=== PATIENT | male | born 1965 | race Caucasian/White ===

== ENCOUNTER 2017-09-07 16:14 | Observation (INO) | payer OTHER ==
[~2017-09-07] VITALS: Ht 172.7 cm; Wt 62.2 kg
[~2017-09-07 16:14] MED LIST: ANAPROX DS550 M1 PO; BACTRIM,SEPT1 TABLET PO; BUPROPION HCL75 MG PO; CARBAMAZEPINE200 MG PO; DESYREL 150 MG150 MG PO; DOCUSATE SODIU100 MG PO; FLOMAX0.4 MG PO; GEODON60 MG PO; METHADONE 22 MG/1 ML PO; METHADONE10 MG PO; MIRALAX255 GM PO; MOTRIN800 MG PO; NAPROSYN250 MG PO; NAPROSYN500 MG PO; NEURONTIN300 MG PO; NEURONTIN600 MG PO; NOHOMEMEDS; PERCOCET; PREDNISONE20 MG PO; PROMETHAZINE HC25 M1 PO; SEROQUEL100 MG PO; SIMVASTATIN20 MG PO; SIMVASTATIN40 M1 PO; SUBOXONE 12 MG1 EACH SL; TORADOL10 MG PO; VENTOLIN HFA18 GM IH; ZITHROMAX Z-PA250 MG PO; ZOFRAN ODT4 MG PO; ZOLOFT100 MG PO
[2017-09-07 16:48] LABS: HEMATOCRIT 35.6 % (38.0-50.0); HEMOGLOBIN 12.4 G/DL (12.5-16.6); MCH 33.5 PG (29.0-34.0); MCHC 34.8 G/DL (30.0-36.0); MCV 96.2 FL (86-99); PLATELET COUNT 174 K/uL (156-360); RBC DIS.WIDTH-SD 46.1 % (39-53); WHITE BLOOD COUNT 7.5 K/uL (4.1-10.2)
[2017-09-07 16:56] LABS: ALBUMIN 3.8 g/dL (3.2-4.8)
[2017-09-07 16:57] LABS: CHLORIDE 102 mEq/L (99-109); POTASSIUM 4.5 mEq/L (3.7-5.4); SODIUM 137 mEq/L (136-147)
[2017-09-07 16:59] LABS: GLUCOSE 84 mg/dL (70-99); TOTAL PROTEIN 6.9 g/dL (6.4-8.3)
[2017-09-07 17:01] LABS: TOTAL BILIRUBIN 0.3 mg/dL (0.0-1.0)
[2017-09-07 17:02] LABS: ALKALINE PHOSPHATASE 78 IU/L (3-129)
[2017-09-07 17:03] LABS: CREATININE 1.1 mg/dL (0.6-1.3); GFR ESTIMATE (CALCULATED) > 59 mL/min/ (58.99-99999)
[2017-09-07 17:04] LABS: AST (GOT) 24 IU/L (2-34); UREA NITROGEN (BUN) 10 mg/dL (9-23)
[2017-09-07 17:05] LABS: ALT (GPT) 15 IU/L (3-49)
[2017-09-07 17:08] LABS: TROP-I INTERPRETATION NEGATIVE; TROPONIN-I < 0.01 ng/mL (0.0-0.30)
[2017-09-07] MEDS ORDERED: WELLBUTRIN XL300 MG PO (18:02)
[2017-09-07] MEDS ORDERED: VENTOLIN HFA18 GM IH (18:03)
[2017-09-07] MEDS ORDERED: ZOCOR20 MG PO (18:03)
[2017-09-07] MEDS ORDERED: NEURONTIN600 MG PO (18:03)
[2017-09-07] MEDS ORDERED: ATROVENT H200 INHALA IH (18:03)
[2017-09-07 20:05] LABS: D-DIMER ELISA < 150.00 ng/mLDDU (<230)
[2017-09-07 20:43] VITALS: BP 120/75
[2017-09-07 22:17] LABS: INTER. NORMALIZED RATIO 1.1
[2017-09-07 22:19] LABS: PTT 33.3 SEC (25-37)
[2017-09-07 23:20] VITALS: BP 99/55
[2017-09-07 23:39] LABS: TROP-I INTERPRETATION NEGATIVE; TROPONIN-I < 0.01 ng/mL (0.0-0.30)
[2017-09-08 04:00] VITALS: BP 104/70
[2017-09-08 05:55] LABS: HEMATOCRIT 34.7 % (38.0-50.0); HEMOGLOBIN 11.5 G/DL (12.5-16.6); MCH 32.3 PG (29.0-34.0); MCHC 33.1 G/DL (30.0-36.0); MCV 97.5 FL (86-99); PLATELET COUNT 140 K/uL (156-360); RBC DIS.WIDTH-CV 13.2 % (11.8-14.6); RBC DIS.WIDTH-SD 47.7 % (39-53); RED BLOOD COUNT 3.56 M/uL (4.00-5.50); WHITE BLOOD COUNT 5.1 K/uL (4.1-10.2)
[2017-09-08 06:11] LABS: TROP-I INTERPRETATION NEGATIVE; TROPONIN-I < 0.01 ng/mL (0.0-0.30)
[2017-09-08 07:13] LABS: ALBUMIN 3.2 G/DL (3.2-4.8); ALKALINE PHOSPHATASE 58 IU/L (3-129); ALT (GPT) 10 IU/L (3-49); AST (GOT) 16 IU/L (2-34); CHLORIDE 109 MEQ/L (99-109); CREATININE 1.2 MG/DL (0.6-1.3); GFR ESTIMATE (CALCULATED) > 59 mL/min/ (58.99-99999); GLUCOSE 79 mg/dL (70-99); POTASSIUM 4.9 MEQ/L (3.7-5.4); SODIUM 141 MEQ/L (136-147); TOTAL BILIRUBIN 0.3 MG/DL (0.0-1.0); TOTAL PROTEIN 5.7 G/DL (6.4-8.3); UREA NITROGEN (BUN) 10 mg/dL (9-23)
[2017-09-08 07:30] VITALS: BP 102/60
[2017-09-08] MEDS ORDERED: ASPIR-LOW81 MG PO (11:48)
== END 2017-09-08 14:19 | disposition home or self-care (01) ==
LOC: EME 16:14 → EDOF 18:49 → ENRESERV 18:52 → 5WEST 20:16 → ENPENDDIS 09-08 14:06 → 5WEST 09-08 14:19
PROVIDERS: Emergency Medicine; Internal Medicine
DX: R07.81 Pleurodynia (principal); E78.5 Hyperlipidemia, unspecified; F17.210 Nicotine dependence, cigarettes, uncomplicated; J44.9 Chronic obstructive pulmonary disease, unspecified; F31.9 Bipolar disorder, unspecified; Z87.442 Personal history of urinary calculi; F11.20 Opioid dependence, uncomplicated; Z79.82 Long term (current) use of aspirin; Z88.0 Allergy status to penicillin; Z88.5 Allergy status to narcotic agent
CPT/HCPCS: 71045; 80053; 84484; 85027; 85379; 85610; 85730; 93005; 99202; 99281; 99285; G0378